=== PATIENT | male | born 1990 | race Caucasian/White ===

== ENCOUNTER 2017-02-24 12:28 | Emergency (ER) | payer MEDICAID ==
[~2017-02-24] VITALS: Ht 185.4 cm; Wt 132.4 kg
[2017-02-24 12:37] VITALS: BP 134/77; PULSE 66; RESP 16; TEMP 97; O2SAT 98
--- NOTE | 2017-02-24 13:40 | NUR ---
Patient was seen in triage by Dr. Baca.
--- NOTE | 2017-02-24 14:00 | NUR ---
Patient given written and verbal discharge instructions and verbalizes understanding. ER MD discussed with patient the results and treatment provided. Given copies of tests performed in ER. Patient in stable condition. ID arm band removed. Rx of Cephalexin, mupirocin given. Patient educated on pain management and to follow up with PMD. Pain Scale 0/10. Opportunity for questions provided and answered.
== END 2017-02-24 14:00 | disposition home or self-care (01) ==
LOC: SED 12:28
DX: L03.011 Cellulitis of right finger (principal); R03.0 Elevated blood-pressure reading, without diagnosis of hypertension
CPT/HCPCS: 99283